=== PATIENT | female | born 1985 | race Caucasian/White ===

== ENCOUNTER → 2021-12-17 11:36 | Outpatient (REF) | payer OTHER, SELFPAY | LOC: ANHLAB 11:36 | PROVIDERS: Visit Provider Surgery Plastic and Reconstructive Surgery | DX: L91.0 Hypertrophic scar (principal) | CPT/HCPCS: 88305 ==

== ENCOUNTER 2022-07-20 10:20 | Emergency (ER) | payer OTHER, SELFPAY ==
[2022-07-20 10:35] VITALS: BP 151/83; PULSE 82; RESP 16; TEMP 36.5; O2SAT 99
--- NOTE | 2022-07-20 10:56 | ED.URI ---
HPI - URI/Sore Throat General Chief Complaint: Upper Respiratory Infection Stated Complaint: not feeling well Time Seen by Provider: 07/20/22 10:56 Source: patient Mode of arrival: ambulatory Limitations: no limitations History of Present Illness HPI Narrative: Ms. Owen is a 36-year-old female patient presenting to clinic today with complaints of not feeling well. She reports that she is having some fatigue, body aches, sore throat, and chills. States that symptoms just began yesterday. She works in [employer] so she states she gets exposed to a lot of illness MD elicited complaint: sore throat and nasal congestion Related Data Home Medications Medication Instructions Recorded Confirmed norgestimate 0.18 mg/0.215 mg/0.25 1 tablet PO DAILY 01/14/22 07/20/22 mg-ethinyl estradiol 25 mcg tablet ([id number]) sertraline 100 mg tablet 100 mg PO DAILY 01/14/22 07/20/22 cetirizine 10 mg tablet (Zyrtec) 10 mg PO DAILY 05/27/22 07/20/22 alprazolam 0.5 mg tablet (Xanax) 0.5 mg PO QHS 07/20/22 07/20/22 Allergies Allergy/AdvReac Type Severity Reaction Status Date / Time erythromycin base Allergy Severe Vomiting Verified 07/20/22 10:43 [From Erythrocin] iodine Allergy Severe Hives Verified 07/20/22 10:43 neomycin Allergy Severe hives Verified 07/20/22 10:43 nickel Allergy Severe dermatitis Verified 07/20/22 10:43 shellfish derived Allergy Severe Hives Verified 07/20/22 10:43 amoxicillin Allergy Intermediate thrush Verified 07/20/22 10:43 Review of Systems Review of Systems: Pertinent positives per HPI. Patient denies any fever, chills, rash, headache, visual changes, dizziness, shortness of breath, chest pain, palpitations, nausea, vomiting, diarrhea, constipation, abdominal pain, or any urinary issues. PMFSH Past Medical History Medical History Anxiety Depression Diabetes type 2, controlled HSV (herpes simplex virus) anogenital infection Hx of renal calculi Surgical History Surgical History H/O cystoscopy Hx of tonsillectomy [place] teeth extracted Family History Family History Mother Diabetes mellitus Type 2 Hypertension Graves' disease Grandparent Diabetes mellitus Type 2 Cerebrovascular accident Grandparent Diabetes mellitus Type 2 Congestive heart failure Alcoholism Social History Social History Smoking packs per day: 0.5 Smoking cigarettes per day: 10.0 Years smoked: 10 Smoking pack-years: 5.00 Smoking status: Former smoker Smoking end date: 07/24/17 Alcohol intake: current Alcohol use details: socially; seldom Substance use: never Substance use type: does not use Lack of Transportation: No Lack of Food: Never True Current Housing: I Have Housing Concerned About Future Housing: No Difficulty Paying Gas/Electric Bills: No Difficulty Paying for Meds: No Currently Unemployed: No Education: Bachelor's Degree Difficulty w/ Childcare or Family Care: No 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 There is no relevant family history pertinent to the patient complaint. Exam Narrative: General: Well-developed, obese, in no apparent distress Head: Normocephalic, atraumatic Eyes: Pupils equally round and reactive to light bilaterally, EOM intact, sclera and conjunctive clear, no discharge, lids normal Ears: TMs intact and clear, ear canals clear, no drainage, grossly hearing normal. Nose
== END 2022-07-20 11:37 | disposition home or self-care (01) ==
PROVIDERS: Emergency Provider Nurse Practitioner Family; PCP Family Medicine
DX: J06.9 Acute upper respiratory infection, unspecified (principal); B34.9 Viral infection, unspecified; J02.9 Acute pharyngitis, unspecified; F41.8 Other specified anxiety disorders; E11.9 Type 2 diabetes mellitus without complications; Z87.891 Personal history of nicotine dependence; Z20.822 Contact with and (suspected) exposure to COVID-19
CPT/HCPCS: 87426; 87804; 87880; 99213; C9803; G0463

== ENCOUNTER 2022-08-29 08:34 | Emergency (ER) | payer OTHER, SELFPAY ==
--- NOTE | 2022-08-29 08:59 | ED.URI ---
HPI - URI/Sore Throat General Chief Complaint: Upper Respiratory Infection Stated Complaint: Sinus/Throat/Ears Time Seen by Provider: 08/29/22 08:52 Source: patient, RN notes reviewed and old records reviewed Mode of arrival: ambulatory Limitations: no limitations History of Present Illness HPI Narrative: 36-year-old female presents to [facility] with complaints of sinus congestion sore throat and ear pain. Stated that it started yesterday afternoon, less than 24 hours Denies fevers. Taken allergy medication 1 time and NyQuil last night with no relief. Onset (ago): day(s) (1) Related Data Home Medications Medication Instructions Recorded Confirmed sertraline 100 mg tablet 100 mg PO DAILY 01/14/22 08/29/22 cetirizine 10 mg tablet (Zyrtec) 10 mg PO DAILY 05/27/22 08/29/22 Allergies Allergy/AdvReac Type Severity Reaction Status Date / Time erythromycin base Allergy Severe Vomiting Verified 08/29/22 09:05 [From Erythrocin] iodine Allergy Severe Hives Verified 08/29/22 09:05 neomycin Allergy Severe hives Verified 08/29/22 09:05 nickel Allergy Severe dermatitis Verified 08/29/22 09:05 shellfish derived Allergy Severe Hives Verified 08/29/22 09:05 amoxicillin Allergy Intermediate thrush Verified 08/29/22 09:05 Review of Systems Review of Systems: All systems reviewed & are unremarkable except as noted in HPI and below Constitutional: Constitutional: Reports no additional constitutional complaints Eyes: Eyes: Reports no additional eye complaints ENT: Reports as per HPI, Reports nasal congestion and Reports sore throat Cardiovascular: Cardiovascular: Reports no additional cardiovascular complaints, Denies chest pain and Denies dyspnea Respiratory: Respiratory: Reports no additional respiratory complaints, Denies chest congestion, Denies cough and Denies dyspnea Gastrointestinal: Gastrointestinal: Reports no additional gastrointestinal complaints, Denies abdominal pain, Denies nausea and Denies vomiting Musculoskeletal: Musculoskeletal: Reports no additional musculoskeletal complaints Integumentary/Breasts: Skin/Breast: Reports system reviewed and no additional complaints, except as docu Neurologic: Reports system reviewed and no additional complaints, except as documented Psychiatric: Psychiatric: Reports no additional psychiatric complaints Allergic/Immunologic: Allergic/Immunologic: Reports no additional allergic/immunologic complaints PMFSH Past Medical History Medical History Anxiety Depression Diabetes type 2, controlled HSV (herpes simplex virus) anogenital infection Hx of renal calculi Surgical History Surgical History H/O cystoscopy Hx of tonsillectomy [place] teeth extracted Family History Family History Mother Diabetes mellitus Type 2 Hypertension Graves' disease Grandparent Diabetes mellitus Type 2 Cerebrovascular accident Grandparent Diabetes mellitus Type 2 Congestive heart failure Alcoholism Social History Social History Smoking packs per day: 0.5 Smoking cigarettes per day: 10.0 Years smoked: 10 Smoking pack-years: 5.00 Smoking status: Former smoker Smoking end date: 07/24/17 Alcohol intake: current Alcohol use details: socially; seldom Substance use: never Substance use type: does not use Lack of Transportation: No Lack of Food: Never True Current Housing: I Have Housing Concerned About Future Housing: No Difficulty Paying Gas/Electric Bills: No Difficulty Paying for Meds: No Currently Unemployed: No Education: Bachelor's Degree Difficulty w/ Childcare or Family Care: No Occupation/Education: occupation 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
[2022-08-29 09:05] VITALS: BP 124/83; PULSE 88; RESP 22; TEMP 36.6; O2SAT 98
== END 2022-08-29 10:13 | disposition home or self-care (01) ==
PROVIDERS: Emergency Provider Nurse Practitioner; PCP Family Medicine
DX: J06.9 Acute upper respiratory infection, unspecified (principal); Z87.891 Personal history of nicotine dependence; E11.9 Type 2 diabetes mellitus without complications; F41.9 Anxiety disorder, unspecified; F32.A Depression, unspecified
CPT/HCPCS: 87081; 87880; 99213; G0463

== ENCOUNTER 2022-11-25 15:28 | Outpatient (CLI) | payer OTHER, SELFPAY ==
--- NOTE | ~2022-11-25 | US_ITS ---
EXAMINATION: US abdomen complete DATE: 11/25/2022 15:02 INDICATION: Epigastric abdominal pain. TECHNIQUE: Multiple grayscale and Doppler ultrasound images of the abdomen were obtained. COMPARISON: CT abdomen and pelvis 12/31/2013 FINDINGS: The visualized portions of the head and body of the pancreas are normal. There is diffuse h epatic steatosis. There is normal flow in main portal vein. The gallbladder is normal in size. No gal lstones or gallbladder wall thickening. There is a positive sonographic Wei sign. The common duct is normal and measures 2 mm. The kidneys are normal in size. The spleen is normal in size. Abdominal aorta is normal in caliber. Inferior vena cava is normal. IMPRESSION: 1. Diffuse hepatic steatosis. 2. No etiology for the positive sonographic Wei sign. Reviewed, dictated and finalized at location A.
[2022-11-25 15:59] LABS: Basophils Absolute Auto 0.1 K/mm3 (0.0-0.1); Basophils Percent Auto 0.4 % (0.2-1.2); Eosinophils Absolute Auto 0.2 K/mm3 (0-0.3); Eosinophils Percent Auto 2.1 % (0-4.4); Hematocrit 44.5 % (37.0-47.0); Hemoglobin 15.2 g/dL (12.0-15.0); Immature Granulocyte Absolute 0.04 K/mm3 (0.00-0.031); Immature Granulocyte Percent A 0.4 % (0-0.5); Lymphocytes Absolute Auto 3.16 K/mm3 (0.9-3.2); Lymphocytes Percent Auto 27.7 % (18.3-44.2); Mean Corpuscular HGB Conc 34.2 g/dl (32-36); Mean Corpuscular Hemoglobin 30.7 pg (26-34); Mean Corpuscular Volume 89.9 fl (80-100); Mean Platelet Volume 9.4 fl (7.4-10.4); Monocytes Absolute Auto 0.6 K/mm3 (0.1-0.6); Monocytes Percent Auto 5.5 % (2.6-8.5); Neutrophils Absolute Auto 7.3 K/mm3 (1.3-6.7); Neutrophils Percent Auto 63.9 % (45.5-73.1); Platelet Count Result 250 k/mm3 (150-375); Red Blood Count 4.95 M/mm3 (4.2-5.4); Red Cell Distribution Width 12.1 % (11.5-14.5); White Blood Count 11.4 K/mm3 (4.5-10.0)
== END 2022-11-25 15:29 | disposition home or self-care (01) ==
PROVIDERS: PCP Family Medicine; Visit Provider Family Medicine
DX: R10.13 Epigastric pain (principal); K76.0 Fatty (change of) liver, not elsewhere classified
CPT/HCPCS: 36415; 76700; 85025

== ENCOUNTER 2023-10-27 14:23 | Outpatient (CLI) | payer OTHER, SELFPAY ==
[2023-10-27 15:16] LABS: Hematocrit 47.4 % (37.0-47.0); Hemoglobin 16.2 g/dL (12.0-15.0); Mean Corpuscular HGB Conc 34.2 g/dl (32-36); Mean Corpuscular Hemoglobin 29.8 pg (26-34); Mean Corpuscular Volume 87.3 fl (80-100); Mean Platelet Volume 10.3 fl (7.4-10.4); Platelet Count Result 200 k/mm3 (150-375); Red Blood Count 5.43 M/mm3 (4.2-5.4); Red Cell Distribution Width 12.4 % (11.5-14.5); White Blood Count 10.6 K/mm3 (4.5-10.0)
[2023-10-27 15:33] LABS: Alanine Aminotransferase 20 U/L (6-35); Albumin Level 4.7 g/dL (3.5-5.1); Alkaline Phosphatase 131 U/L (38-126); Anion Gap 9 mmol/L (4-12); Aspartate Amino Transferase 24 U/L (14-36); Bilirubin,Total 0.9 mg/dL (0.2-1.3); Blood Urea Nitrogen 11 mg/dL (7-17); Calcium 10.1 mg/dL (8.4-10.2); Carbon Dioxide 22 mmol/L (22-30); Chloride 102 mmol/L (98-107); Cholesterol 244 mg/dL (0-200); Estimated Glomerular Filt Rate > 60; Glucose 239 mg/dL (65-110); HDL Direct 35 mg/dL; Potassium 3.9 mmol/L (3.4-5.0); Sodium 133 mmol/L (137-145); Triglycerides 158 mg/dL (<150)
[2023-10-27 15:44] LABS: LDL Cholesterol Direct 182 mg/dL
[2023-10-27 15:54] LABS: Creatinine Urine 191.2 mg/dL
[2023-10-27 15:58] LABS: Microalbumin Urine Random 36.3 mg/L (0-16.7)
[2023-10-27 16:05] LABS: Free T4 Free Thyroxine 1.47 ng/mL (0.78-2.19)
[2023-10-30 09:55] LABS: Hemoglobin A1C 11.7 % (<5.7)
== END 2023-10-27 14:24 | disposition home or self-care (01) ==
PROVIDERS: Physician Assistant Medical; PCP Family Medicine; Visit Provider Physician Assistant
DX: R53.83 Other fatigue (principal); Z13.220 Encounter for screening for lipoid disorders; E11.9 Type 2 diabetes mellitus without complications; Z13.1 Encounter for screening for diabetes mellitus; D64.9 Anemia, unspecified
CPT/HCPCS: 36415; 80053; 80061; 82043; 83036; 84439; 84443; 85027

== ENCOUNTER 2024-03-07 07:38 | Outpatient (CLI) | payer OTHER, SELFPAY ==
[2024-03-07 08:01] LABS: Basophils Absolute Auto 0.1 K/mm3 (0.0-0.1); Basophils Percent Auto 0.7 % (0.2-1.2); Eosinophils Absolute Auto 0.6 K/mm3 (0-0.3); Eosinophils Percent Auto 7.7 % (0-4.4); Hematocrit 45.8 % (37.0-47.0); Immature Granulocyte Absolute 0.03 K/mm3 (0.00-0.031); Immature Granulocyte Percent A 0.4 % (0-0.5); Lymphocytes Absolute Auto 2.44 K/mm3 (0.9-3.2); Lymphocytes Percent Auto 30.4 % (18.3-44.2); Mean Corpuscular HGB Conc 32.8 g/dl (32-36); Mean Corpuscular Hemoglobin 30.3 pg (26-34); Mean Corpuscular Volume 92.5 fl (80-100); Mean Platelet Volume 9.7 fl (7.4-10.4); Monocytes Absolute Auto 0.5 K/mm3 (0.1-0.6); Monocytes Percent Auto 5.9 % (2.6-8.5); Neutrophils Absolute Auto 4.4 K/mm3 (1.3-6.7); Neutrophils Percent Auto 54.9 % (45.5-73.1); Platelet Count Result 222 k/mm3 (150-375); Red Blood Count 4.95 M/mm3 (4.2-5.4); Red Cell Distribution Width 12.1 % (11.5-14.5)
[2024-03-07 08:16] LABS: Alanine Aminotransferase 14 U/L (6-35); Albumin Level 4.4 g/dL (3.5-5.1); Alkaline Phosphatase 93 U/L (38-126); Anion Gap 10 mmol/L (4-12); Aspartate Amino Transferase 25 U/L (14-36); Bilirubin,Total 0.5 mg/dL (0.2-1.3); Blood Urea Nitrogen 9 mg/dL (7-17); Calcium 9.4 mg/dL (8.4-10.2); Carbon Dioxide 30 mmol/L (22-30); Chloride 98 mmol/L (98-107); Cholesterol 152 mg/dL (0-200); Estimated Glomerular Filt Rate > 60; Glucose 173 mg/dL (65-110); HDL Direct 35 mg/dL; Potassium 3.8 mmol/L (3.4-5.0); Sodium 138 mmol/L (137-145); Triglycerides 127 mg/dL (<150)
[2024-03-07 08:26] LABS: LDL Cholesterol Direct 85 mg/dL
[2024-03-07 09:12] LABS: Iron 58 ug/dL (37-170)
[2024-03-07 09:22] LABS: Percent Iron Saturation 15 % (20-50)
== END 2024-03-07 07:39 | disposition home or self-care (01) ==
LOC: ANHLAB 07:39
PROVIDERS: PCP Family Medicine; Visit Provider Family Medicine
DX: D75.1 Secondary polycythemia (principal); E11.9 Type 2 diabetes mellitus without complications; E78.2 Mixed hyperlipidemia
CPT/HCPCS: 36415; 80053; 80061; 82728; 83036; 83540; 83550; 85025